=== PATIENT | female | born 1965 | race Caucasian/White ===

== ENCOUNTER 2017-10-07 15:45 | Emergency (ER) | payer OTHER ==
[~2017-10-07] VITALS: Ht 160 cm; Wt 77.6 kg
--- NOTE | 2017-10-07 16:35 | EKG ---
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
--- NOTE | 2017-10-07 16:42 | PHYS DOC ---
Past History Past Medical History: Migraines Additional Past Medical Histor: restless leg syndrome Smoking: Non-smoker Adult General Chief Complaint Chief Complaint: HYPERTENSION HPI HPI 52-year-old female patient states she has had problem with her blood pressure since July and her primary care physician instructed to record her blood pressure without starting medication. Patient states her blood pressure usually is 130s to 150s over 90s but for the last 2 nights her diastolic blood pressure was as high as 107. Patient complaining of mild dizziness without headache, nausea and vomiting, chest pain, palpitation, fever and chills, focal neuro deficit. Review of Systems Review of Systems Constitutional: Denies fever or chills [] Eyes: Denies change in visual acuity, redness, or eye pain [] HENT: Denies nasal congestion or sore throat [] Respiratory: Denies cough or shortness of breath [] Cardiovascular: No additional information not addressed in HPI [] GI: Denies abdominal pain, nausea, vomiting, bloody stools or diarrhea [] : Denies dysuria or hematuria [] Musculoskeletal: Denies back pain or joint pain [] Integument: Denies rash or skin lesions [] Neurologic: Denies headache, focal weakness or sensory changes [] Endocrine: Denies polyuria or polydipsia [] All other systems were reviewed and found to be within normal limits, except as documented in this note. Physical Exam Physical Exam Constitutional: Well developed, well nourished, no acute distress, non-toxic appearance. [] HENT: Normocephalic, atraumatic, bilateral external ears normal, oropharynx moist, no oral exudates, nose normal. [] Eyes: PERRLA, EOMI, conjunctiva normal, no discharge. [] Neck: Normal range of motion, no tenderness, supple, no stridor. [] Cardiovascular:Heart rate regular rhythm, no murmur [] Lungs & Thorax: Bilateral breath sounds clear to auscultation [] Abdomen: Bowel sounds normal, soft, no tenderness, no masses, no pulsatile masses. [] Skin: Warm, dry, no erythema, no rash. [] Back: No tenderness, no CVA tenderness. [] Extremities: No tenderness, no cyanosis, no clubbing, ROM intact, no edema. [] Neurologic: Alert and oriented X 3, normal motor function, normal sensory function, no focal deficits noted. [] Psychologic: Affect normal, judgement normal, mood normal. [] EKG EKG EKG interpreted by me. EKG at 1616 showed normal sinus rhythm at rate of 74, normal EKG[] Radiology/Procedures Radiology/Procedures [] Course & Med Decision Making Course & Med Decision Making Pertinent Labs reviewed. (See chart for details) Evolution of patient in ER showed 52-year-old male patient resident of [place] who had elevation of blood pressure for 3 months. Patient had increase of diastolic blood pressure to 107 and had blood pressure of 140s over 107 in ER that did not decrease while she was in ER. Patient treated with lisinopril in ER and her blood pressure decreased . Plan to discharge patient home to diagnose of hypertension with prescription of lisinopril and follow up with her primary care. physician. Zaire Disclaimer Zaire Disclaimer This electronic medical record was generated, in whole or in part, using a voice recognition dictation system. Departure Departure: Impression: Primary Impression: Elevated blood pressure reading without diagnosis of hypertension Disposition: HOME, SELF-CARE (At 1755) Condition: IMPROVED Referrals: PCP,UNKNOWN (PCP) Patient Instructions: Hypertension Additional Instructions: Follow-up with your primary care physician in 3-5 days Return to ER if not getting better Scripts Lisinopril (LISINOPRIL) 10 Mg Tablet 1 TAB PO DAILY, #30 TAB 5 Refills Prov: MUNA CAMPO MD 10/07/17 MUNA CAMPO MD October 07, 2017 16:42
[2017-10-07 17:06] LABS: BASO # 0.1 x10^3/uL (0.0-0.2); BASO % 1 % (0-3); EOS # 0.4 x10^3/uL (0.0-0.7); EOS % 6 % (0-3); HEMATOCRIT 40.4 % (36.0-47.0); HEMOGLOBIN 13.8 g/dL (12.0-15.5); LYMPH # 2.5 x10^3/uL (1.0-4.8); LYMPH % 43 % (24-48); MEAN CORPUSCULAR HEMOGLOBIN 30 pg (25-35); MEAN CORPUSCULAR HGB CONC 34 g/dL (31-37); MEAN CORPUSCULAR VOLUME 88 fL (79-100); MONO # 0.5 x10^3/uL (0.0-1.1); MONO % 8 % (0-9); NEUT # 2.6 x10^3uL (1.8-7.7); NEUT % 43 % (31-73); PLATELET COUNT 329 x10^3/uL (140-400); WHITE BLOOD COUNT 5.9 x10^3/uL (4.0-11.0)
[2017-10-07 17:25] LABS: ALBUMIN 3.5 g/dL (3.4-5.0); CALCIUM 8.9 mg/dL (8.5-10.1); CREATININE 0.9 mg/dL (0.6-1.0); GFR 65.5; POTASSIUM 3.7 mmol/L (3.5-5.1); TOTAL BILIRUBIN 0.2 mg/dL (0.2-1.0); TOTAL PROTEIN 7.1 g/dL (6.4-8.2)
[2017-10-07] MEDS ORDERED: LISINOPRIL 10 MG TABLET PO ONE (17:30)
[2017-10-07] MEDS ORDERED: LISI10TA2 PO (17:37)
[2017-10-07 18:00] VITALS: BP 157/113
== END 2017-10-07 18:00 | disposition home or self-care (01) ==
LOC: ER 15:45
DX: R03.0 Elevated blood-pressure reading, without diagnosis of hypertension (principal); G43.909 Migraine, unspecified, not intractable, without status migrainosus; G25.81 Restless legs syndrome
CPT/HCPCS: 36415; 80053; 84484; 85025; 93005; 99285-25